=== PATIENT | male | born 1960 | race Caucasian/White ===

== ENCOUNTER 2017-02-24 12:39 | Inpatient (IN) | payer MEDICARE, MEDICAID ==
[~2017-02-24 12:39] MED LIST: AMBIEN10 MG PO; AMOXICILLIN500 MG PO; BACTERICIN14.2 GM TP; COLACE-T100 MG PO; COUMADIN5 M1 PO; CRANBERRY500 M PO; CYMBALTA60 M1 PO; CYMBALTA60 MG PO; D-20002000 UNIT PO; DULCOLAX5 MG PO; ELAVIL50 MG PO; EUCERIN CREME60 GM TP; GABLOFEN10000 MCG/ PO; HIPREX1 G PO; LASIX40 M1 PO; LEVAQUIN500 M1 PO; LEVOTHYROXINE100 MC1 PO; LYRICA200 M1 PO; MAGIC BULLET10 MG RC; MIRALAX17 GM PO; NEURONTIN300 MG PO; OXYCODONE/APAP PO; PERCOCET 10 MG/1 TA1 PO; PHENTERMINE H37.5 M1 PO; PROMETHAZINE12.5 M2 PO; TOPAMAX25 M2 PO; VENTOLIN HFA18 G2 PO; VIAGRA50 MG PO; VITAMIN C PO; VITAMIN D2000 UNIT PO; VITAMIN D400 UNIT PO; ZANTAC150 MG PO; [UNRECOGNIZED DRUG - REMARK]
[2017-02-24 14:20] LABS: BASO % 0.9 % (0-2); BASO ABSOLUTE COUNT 0.1 tho/cmm (0.0-0.2); EOS % 4.7 % (0-7); EOSINOPHIL ABSOLUTE COUNT 0.5 tho/cmm (0.0-0.7); HCT-HEMATOCRIT 41.4 % (36.0-53.5); HGB-HEMOGLOBIN 13.8 gm/dl (13.5-17.0); IMMATURE GRANULOCYTES ABSOLUTE 0.02 tho/cmm (0-0.03); IMMATURE GRANULOCYTES PERCENT 0.2 % (0-0.3); LYMPH % 18.3 % (20-45); LYMPH ABSOLUTE COUNT 1.8 tho/cmm (0.8-4.5); MCH (MEAN CORPUSCULAR HGB) 28.8 pg (28.0-32.0); MCHC MEAN CORPUSCULAR HGB CONC 33.3 % (32.0-36.0); MCV (MEAN CELL VOLUME) 86.4 fl (82.0-96.0); MEAN PLATELET VOLUME 9.2 cmc (9.4-12.4); MONO % 7.2 % (0-12); MONOCYTE ABSOLUTE COUNT 0.7 tho/cmm (0.0-1.2); NEUTROPHIL ABSOLUTE COUNT 6.8 tho/cmm (1.6-8.0); NEUTROPHIL-AUTOMATED 6.8 tho/cmm (1.6-8.0); NEUTROPHILS % 68.7 % (40-80); PLATELET COUNT 311 tho/cmm (150-450); RED BLOOD COUNT 4.79 mil/cmm (4.40-5.70); RED CELL DISTRIBUTION WIDTH 15.6 % (12.4-16.4); WHITE BLOOD COUNT 9.9 tho/cmm (4.0-10.0)
[2017-02-24 15:50] LABS: ANION GAP 13 mmol/L (0-20); BLOOD UREA NITROGEN 16 mg/dl (6-24); CALCIUM 9.2 mg/dl (8.5-10.5); CARBON DIOXIDE-VENOUS 31 mmol/L (22-32); CHLORIDE 100 mmol/l (96-110); CREATININE 0.34 mg/dl (0.60-1.30); GLUCOSE 124 mg/dL (70-110); POTASSIUM 3.6 mmol/L (3.7-5.1); SODIUM 140 mmol/L (135-145); eGFR VALUE FOR BLACK >90 mL/Min
[2017-02-25 04:45] LABS: PLATELET COUNT 320 tho/cmm (150-450)
[2017-02-25 05:12] LABS: eGFR VALUE FOR BLACK >90 mL/Min
[2017-02-25 05:13] LABS: CREATININE 0.58 mg/dl (0.60-1.30)
[2017-02-25] MEDS ORDERED: CALCIUM 600 +1 EA12 PO (10:54)
[2017-02-25] MEDS ORDERED: TAB-A-VITE1 EAC1 PO (10:54)
[2017-02-25] MEDS ORDERED: VITAMIN C500 M3 PO (10:54)
[2017-02-25] MEDS ORDERED: XANAX0.5 M1 PO (10:55)
[2017-02-25] MEDS ORDERED: BUSPIRONE HCL15 M2 PO (10:55)
[2017-02-25] MEDS ORDERED: ALBUTEROL2.5 MG/3 M INH (10:56)
[2017-02-25] MEDS ORDERED: CYMBALTA60 M1 PO (11:46)
[2017-02-25] MEDS ORDERED: BACLOFEN20 M1 PO (11:46)
[2017-02-25] MEDS ORDERED: PROVIGIL200 M1 PO (11:48)
[2017-02-25] MEDS ORDERED: SERTRALINE HCL25 M3 PO (11:49)
[2017-02-25] MEDS ORDERED: VENTOLIN HFA18 G2 PO (11:50)
[2017-02-25] MEDS ORDERED: CYCLOBENZAPRINE10 M1 PO (11:50)
[2017-02-26 04:54] LABS: PLATELET COUNT 281 tho/cmm (150-450)
[2017-02-28 05:56] LABS: HGB-HEMOGLOBIN 12.6 gm/dl (13.5-17.0); PLATELET COUNT 248 tho/cmm (150-450)
[2017-03-01 06:21] LABS: CREATININE 0.34 mg/dl (0.60-1.30); eGFR VALUE FOR BLACK >90 mL/Min
[2017-03-02 13:36] LABS: HGB-HEMOGLOBIN 12.9 gm/dl (13.5-17.0)
[2017-03-03 06:41] LABS: BASO % 0.4 % (0-2); BASO ABSOLUTE COUNT 0.1 tho/cmm (0.0-0.2); EOS % 4.7 % (0-7); EOSINOPHIL ABSOLUTE COUNT 0.7 tho/cmm (0.0-0.7); HCT-HEMATOCRIT 37.8 % (36.0-53.5); HGB-HEMOGLOBIN 12.2 gm/dl (13.5-17.0); IMMATURE GRANULOCYTES ABSOLUTE 0.04 tho/cmm (0-0.03); IMMATURE GRANULOCYTES PERCENT 0.3 % (0-0.3); LYMPH % 15.2 % (20-45); LYMPH ABSOLUTE COUNT 2.2 tho/cmm (0.8-4.5); MCH (MEAN CORPUSCULAR HGB) 27.8 pg (28.0-32.0); MCHC MEAN CORPUSCULAR HGB CONC 32.3 % (32.0-36.0); MCV (MEAN CELL VOLUME) 86.1 fl (82.0-96.0); MEAN PLATELET VOLUME 9.2 cmc (9.4-12.4); MONO % 8.2 % (0-12); MONOCYTE ABSOLUTE COUNT 1.2 tho/cmm (0.0-1.2); NEUTROPHIL ABSOLUTE COUNT 10.4 tho/cmm (1.6-8.0); NEUTROPHIL-AUTOMATED 10.4 tho/cmm (1.6-8.0); NEUTROPHILS % 71.2 % (40-80); PLATELET COUNT 296 tho/cmm (150-450); RED BLOOD COUNT 4.39 mil/cmm (4.40-5.70); RED CELL DISTRIBUTION WIDTH 15.8 % (12.4-16.4); WHITE BLOOD COUNT 14.5 tho/cmm (4.0-10.0)
[2017-03-03 06:44] LABS: ABG CO2 ARTERIAL 28 mmol/L (21-27); ARTERIAL BLD GAS O2 SATURATION 99 % (95-98); ARTERIAL BLOOD GAS PCO2 37 mmHg (32-45); ARTERIAL PO2 120 mmHg (70-100); BICARBONATE 27 mmol/L (21-28); BLOOD GAS BASE EXCESS 4 mM/L (-/+3); PH 7.48 Units (7.35-7.45)
[2017-03-03 07:32] LABS: ESR-ERYTHROCYTE SED RATE 65 mm/hr (0-20)
[2017-03-03 07:33] LABS: PROCALCITONIN 0.11 ng/ml (0.05-0.09)
[2017-03-03 07:40] LABS: ANION GAP 13 mmol/L (0-20); BLOOD UREA NITROGEN 19 mg/dl (6-24); C-REACTIVE PROTEIN 13.3 mg/dl (0-0.9); CALCIUM 8.8 mg/dl (8.5-10.5); CARBON DIOXIDE-VENOUS 27 mmol/L (22-32); CHLORIDE 104 mmol/l (96-110); CREATININE 0.31 mg/dl (0.60-1.30); GLUCOSE 132 mg/dL (70-110); POTASSIUM 4.2 mmol/L (3.7-5.1); SODIUM 140 mmol/L (135-145); eGFR VALUE FOR BLACK >90 mL/Min
[2017-03-04 05:20] LABS: BASO % 0.2 % (0-2); EOS % 4.2 % (0-7); EOSINOPHIL ABSOLUTE COUNT 0.4 tho/cmm (0.0-0.7); HCT-HEMATOCRIT 33.4 % (36.0-53.5); IMMATURE GRANULOCYTES ABSOLUTE 0.03 tho/cmm (0-0.03); IMMATURE GRANULOCYTES PERCENT 0.3 % (0-0.3); LYMPH % 14.6 % (20-45); LYMPH ABSOLUTE COUNT 1.4 tho/cmm (0.8-4.5); MCH (MEAN CORPUSCULAR HGB) 28.2 pg (28.0-32.0); MCHC MEAN CORPUSCULAR HGB CONC 32.9 % (32.0-36.0); MCV (MEAN CELL VOLUME) 85.6 fl (82.0-96.0); MEAN PLATELET VOLUME 9.1 cmc (9.4-12.4); MONO % 3.9 % (0-12); MONOCYTE ABSOLUTE COUNT 0.4 tho/cmm (0.0-1.2); NEUTROPHIL ABSOLUTE COUNT 7.6 tho/cmm (1.6-8.0); NEUTROPHIL-AUTOMATED 7.6 tho/cmm (1.6-8.0); NEUTROPHILS % 76.8 % (40-80); PLATELET COUNT 287 tho/cmm (150-450); RED CELL DISTRIBUTION WIDTH 15.6 % (12.4-16.4); WHITE BLOOD COUNT 9.9 tho/cmm (4.0-10.0)
[2017-03-04 05:55] LABS: ANION GAP 14 mmol/L (0-20); BLOOD UREA NITROGEN 13 mg/dl (6-24); CALCIUM 8.8 mg/dl (8.5-10.5); CARBON DIOXIDE-VENOUS 27 mmol/L (22-32); CHLORIDE 100 mmol/l (96-110); CREATININE 0.25 mg/dl (0.60-1.30); GLUCOSE 119 mg/dL (70-110); POTASSIUM 3.6 mmol/L (3.7-5.1); SODIUM 137 mmol/L (135-145); eGFR VALUE FOR BLACK >90 mL/Min
[2017-03-04 14:12] LABS: URINE APPEARANCE SLIGHTLHY HAZY; URINE BILIRUBIN NEGATIVE (NEG); URINE BLOOD LARGE (NEG); URINE COLOR YELLOW; URINE GLUCOSE (UA) NEGATIVE (NEG); URINE KETONE NEGATIVE (NEG); URINE LEUKOCYTE ESTERASE POSITIVE (NEG); URINE NITRITE NEGATIVE (NEG); URINE PROTEIN MODERATE (NEG)
[2017-03-04 14:22] LABS: URINE AMORPHOUS 1+; URINE EPITHELIAL CELLS 0-1 /[HPF] (0-10)
[2017-03-04 14:23] LABS: URINE RBC 15-20 /[HPF] (0-5)
[2017-03-06 13:17] LABS: CREATININE 0.33 mg/dl (0.60-1.30); eGFR VALUE FOR BLACK >90 mL/Min
[2017-03-07] MEDS ORDERED: INVANZ1 GM IV (13:14)
[2017-03-07] MEDS ORDERED: BROVANA15 MCG/22 INH (13:15)
[2017-03-07] MEDS ORDERED: LOVENOX40 MG/0.1 SC (13:17)
[2017-03-07] MEDS ORDERED: ACTIVASE50 MG IV (13:18)
[2017-03-07] MEDS ORDERED: LIDOCAINE 1% ID (13:21)
[2017-03-07] MEDS ORDERED: [UNRECOGNIZED DRUG - OTHER] ID (13:21)
[2017-03-07] MEDS ORDERED: HYDROCODON-ACE1 EA16 PO (13:22)
[2017-03-07] MEDS ORDERED: SODIUM CHLORID IV (13:25)
[2017-03-07] MEDS ORDERED: SODIUM CHLORIDE10 M2 IV (13:26)
== END 2017-03-07 13:52 | DRG 570 ==
LOC: BURN 12:39
PROVIDERS: Hospitalist; Registered Nurse; Surgery; ADMIT Surgery
PROC: 0JBL0ZZ Excision of Right Upper Leg Subcutaneous Tissue and Fascia, Open Approach (ICD-10-PCS; principal; 2017-02-24)
PROC: 02HV33Z Insertion of Infusion Device into Superior Vena Cava, Percutaneous Approach (ICD-10-PCS; 2017-02-24)
PROC: 0JXL0ZZ Transfer Right Upper Leg Subcutaneous Tissue and Fascia, Open Approach (ICD-10-PCS; 2017-02-24)
PROC: 0QB20ZZ Excision of Right Pelvic Bone, Open Approach (ICD-10-PCS; 2017-02-24)
PROC: 0BC78ZZ Extirpation of Matter from Left Main Bronchus, Via Natural or Artificial Opening Endoscopic (ICD-10-PCS; 2017-02-24)
PROC: 0BC38ZZ Extirpation of Matter from Right Main Bronchus, Via Natural or Artificial Opening Endoscopic (ICD-10-PCS; 2017-02-24)
PROC: 0BC78ZZ Extirpation of Matter from Left Main Bronchus, Via Natural or Artificial Opening Endoscopic (ICD-10-PCS; 2017-03-02)
PROC: 0BC38ZZ Extirpation of Matter from Right Main Bronchus, Via Natural or Artificial Opening Endoscopic (ICD-10-PCS; 2017-03-02)
DX: L89.213 Pressure ulcer of right hip, stage 3 (principal); G82.50 Quadriplegia, unspecified; J96.01 Acute respiratory failure with hypoxia; L89.513 Pressure ulcer of right ankle, stage 3; E03.9 Hypothyroidism, unspecified; G47.33 Obstructive sleep apnea (adult) (pediatric); E66.9 Obesity, unspecified; R73.9 Hyperglycemia, unspecified; Z68.31 Body mass index [BMI] 31.0-31.9, adult
CPT/HCPCS: C1751; G0463; J0171; J1335; J1650; J1815; J2543; J2997; J3370; J7030; J7050; J7999; P9045